=== PATIENT | male | born 1950 | race Caucasian/White ===

== ENCOUNTER 2020-03-16 11:10 | Emergency (ER) | payer MEDICARE, OTHER ==
[2020-03-16 11:47] VITALS: BP 118/61; PULSE 92
[2020-03-16 12:05] LABS: ANION GAP 16.6 mEq/L (7-13); CHLORIDE,CL 101 mmol/L (98-107); SODIUM,NA 141 mmol/L (136-145)
--- NOTE | 2020-03-16 13:48 | EDM.PDOC ---
<Kareem Roy Estephania - Last Filed: 03/16/20 14:19> ED HPI GENERAL MEDICAL PROBLEM - General Chief Complaint: General Stated Complaint: [facility] TOLD PT TO COME IN Time Seen by Provider: 03/16/20 12:00 Source of Information: Reports: Patient History Limitations: Reports: No Limitations - History of Present Illness INITIAL COMMENTS - FREE TEXT/NARRATIVE: 69 y/o M c/o increasing fatigue since his open heart surgery nov 08 of last year. Last week pt became severely weak with increasing sob with ambulation. Pt states he cannot walk 10 steps without becoming severely sob. Pt also reports increasing swelling in lower extremities over the last few weeks. Denies diaz, vision prob, cp, abd pn, diff voiding, incontinence. Onset: Gradual Duration: Day(s): Location: Reports: Generalized Worsens with: Reports: Movement Associated Symptoms: Reports: No Other Symptoms Generalized Pain Score (Numeric/FACES): 2 - Related Data Allergies Allergy/AdvReac Type Severity Reaction Status Date / Time bacitracin Allergy Hives Verified 03/16/20 11:37 Home Meds: Home Meds Aspirin 1 tab PO DAILY 10/08/14 [History] Clindamycin HCl 1 tab PO DAILY 10/08/14 [History] Nebivolol [Bystolic] 20 mg PO DAILY 10/08/14 [History] Rosuvastatin [Crestor] 10 mg PO DAILY 10/08/14 [History] Past Medical History Cardiovascular History: Reports: Hypertension Respiratory History: Reports: COPD Endocrine/Metabolic History: Reports: Diabetes, Type II, Obesity/BMI 30+ - Infectious Disease History Infectious Disease History: Reports: None - Past Surgical History Head Surgeries/Procedures: Reports: None Cardiovascular Surgical History: Reports: Coronary Artery Bypass Social & Family History - Family History Family Medical History: Unobtainable - Tobacco Use Tobacco Use Status *Q: Former Tobacco User Used Tobacco, but Quit: Yes Month/Year Tobacco Last Used: 2019 - Caffeine Use Caffeine Use: Reports: Coffee - Recreational Drug Use Recreational Drug Use: No ED ROS GENERAL - Review of Systems Review Of Systems: Comprehensive ROS is negative, except as noted in HPI. ED EXAM, GENERAL - Physical Exam Exam: See Below Exam Limited By: No Limitations General Appearance: Alert Eye Exam: Bilateral Eye: PERRL Ears: Normal External Exam, Normal Canal, Hearing Grossly Normal, Normal TMs Nose: Normal Inspection, Normal Mucosa, No Blood Throat/Mouth: Normal Inspection, Normal Lips, Normal Teeth, Normal Gums, Normal Oropharynx, Normal Voice, No Airway Compromise Head: Atraumatic, Normocephalic Neck: Normal Inspection, Supple, Non-Tender, Full Range of Motion Respiratory/Chest: No Respiratory Distress, Lungs Clear, Normal Breath Sounds, Chest Non-Tender Cardiovascular: Normal Peripheral Pulses, Regular Rate, Rhythm, No JVD GI/Abdominal: Normal Bowel Sounds, Soft, Non-Tender (Male) Exam: Deferred Rectal (Males) Exam: Normal Exam, Normal Rectal Tone, Heme - Stool Back Exam: Normal Inspection, Full Range of Motion Extremities: Other (severe weeping pedal edema) Neurological: Alert, Oriented, CN II-XII Intact, Normal Cognition Psychiatric: Normal Affect, Normal Mood Skin Exam: Warm, Dry, Intact, Normal Color, No Rash Course - Radiology Interpretation Free Text/Narrative:: Left sided pleural effusion with atelectasis/infiltrate improved. R sided pleural effusion with atelectasis/infiltrate increased. Multiple chronic compression fractures. Departure - Departure Time of Disposition: 14:21 Disposition: DC[facility] Condition: Fair Clinical Impression: CHF, Congestive heart failure Anemia Qualifiers: Anemia type: unspecified type Qualified Code(s): D64.9 - Anemia, unspecified Kidney failure, acute Qualifiers: Acute renal failure type: unspecified Qualified Code(s): N17.9 - Acute kidney failure, unspecified CHF (congestive heart failure) Qualifiers: Heart failure type: unspecified Heart failure chronicity: unspecified Qualified Code(s): I50.9 - Heart failure, unspecified - Discharge Information *PRESCRIPTION DRUG MONITORING PROGRAM REVIEWED*: Not Applicable *COPY OF PRESCRIPTION DRUG MONITORING REPORT IN PATIENT ANALI: Not Applicable Forms: ED Department Discharge Care Plan Goals: Discussed pt condition with Dr. Aguero of [facility]. Dr. Aguero understood report and accepted patient for a transfer to the PCU at [facility]. Pt was offered transfer by ambualnce but refused and states he will go by POV. Pt understands the risks of traveling POV and not with EMS and understands he could go into cardiac or respiratory arrest and could potentially . Sepsis Event Note (ED) - Evaluation Sepsis Screening Result: No Definite Risk <Abhishek Whittaker - Last Filed: 03/16/20 14:31> ED EXAM, GENERAL - Physical Exam Extremities: Other Course - Vital Signs Last Recorded V/S: Last Vital Signs Temp 36.0 C L 03/16/20 11:20 Pulse 92 03/16/20 11:20 Resp 13 03/16/20 11:20 BP 118/61 03/16/20 11:20 Pulse Ox 96 03/16/20 11:20 - Orders/Labs/Meds Orders: Active Orders 24 hr Category Date Time Status EKG Documentation Completion [RC] STAT Care 03/16/20 11:20 Active CULTURE BLOOD [BC] Stat Lab 03/16/20 11:35 Received RED BLOOD CELLS LP [BBK] Stat Lab 03/16/20 11:35 Results TYPE AND SCREEN [BBK] Stat Lab 03/16/20 11:35 Results WEAK D TEST [BBK] Stat Lab 03/16/20 11:35 Results Transfuse Red Blood Cells [COMM] Urgent Oth 03/16/20 11:20 Ordered Labs: Laboratory Tests 03/16/20 03/16/20 03/16/20 Range/Units 11:35 11:35 11:35 WBC 9.6 (5.0-10.0) 10^3/uL RBC 3.46 L (4.6-6.2) 10^6/uL Hgb 7.6 L D (14.0-18.0) g/dL Hct 27.6 L (40.0-54.0) % MCV 79.8 L D (80-100) fL MCH 22.0 L (27.0-34.0) pg MCHC 27.5 L (33.0-35.0) g/dL Plt Count 198 (150-450) 10^3/uL Neut % (Auto) 80.4 H (42.2-75.2) % Lymph % (Auto) 11.7 L (20.5-50.1) % Amador % (Auto) 6.6 (2-8) % Eos % (Auto) 0.8 L (1.0-3.0) % Baso % (Auto) 0.5 (0.0-1.0) % Sodium 141 (136-145) mmol/L Potassium 4.6 (3.5-5.1) mmol/L Chloride 101 (98-107) mmol/L Carbon Dioxide 28 (21-32) mmol/L Anion Gap 16.6 H (7-13) mEq/L BUN 41 H (7-18) mg/dL Creatinine 1.81 H (0.70-1.30) mg/dL Est Cr Clr Drug Dosing 32.25 mL/min Estimated GFR (MDRD) 37 BUN/Creatinine Ratio 22.7 (No establ ref range) Glucose 164 H (74-99) mg/dL Lactic Acid (0.4-2.0) mmol/L Calcium 9.2 (8.5-10.1) mg/dL Total Bilirubin 0.8 (0.2-1.0) mg/dL AST 16 (15-37) U/L ALT 22 (16-63) U/L Alkaline Phosphatase 133 H (46-116) U/L Troponin I < 0.017 (0.000-0.056) ng/mL B-Natriuretic Peptide 787 H (0-100) pg/ml Total Protein 7.9 (6.4-8.2) g/dL Albumin 3.5 (3.4-5.0) g/dL Globulin 4.4 Albumin/Globulin Ratio 0.8 SARS CoV-2 RNA Rapid EARLENE (NEGATIVE) Blood Type O NEGATIVE Gel Antibody Screen Negative Crossmatch See Detail 03/16/20 03/16/20 Range/Units 11:35 12:10 WBC (5.0-10.0) 10^3/uL RBC (4.6-6.2) 10^6/uL Hgb (14.0-18.0) g/dL Hct (40.0-54.0) % MCV (80-100) fL MCH (27.0-34.0) pg MCHC (33.0-35.0) g/dL Plt Count (150-450) 10^3/uL Neut % (Auto) (42.2-75.2) % Lymph % (Auto) (20.5-50.1) % Amador % (Auto) (2-8) % Eos % (Auto) (1.0-3.0) % Baso % (Auto) (0.0-1.0) % Sodium (136-145) mmol/L Potassium (3.5-5.1) mmol/L Chloride (98-107) mmol/L Carbon Dioxide (21-32) mmol/L Anion Gap (7-13) mEq/L BUN (7-18) mg/dL Creatinine (0.70-1.30) mg/dL Est Cr Clr Drug Dosing mL/min Estimated GFR (MDRD) BUN/Creatinine Ratio (No establ ref range) Glucose (74-99) mg/dL Lactic Acid 4.2 H* (0.4-2.0) mmol/L Calcium (8.5-10.1) mg/dL Total Bilirubin (0.2-1.0) mg/dL AST (15-37) U/L ALT (16-63) U/L Alkaline Phosphatase (46-116) U/L Troponin I (0.000-0.056) ng/mL B-Natriuretic Peptide (0-100) pg/ml Total Protein (6.4-8.2) g/dL Albumin (3.4-5.0) g/dL Globulin Albumin/Globulin Ratio SARS CoV-2 RNA Rapid EARLENE Negative (NEGATIVE) Blood Type Gel Antibody Screen Crossmatch - Re-Assessments/Exams Free Text/Narrative Re-Assessment/Exam: 03/16/20 14:30 I have examined the patient. I have discussed findings and treatment plan with the PA student. I agree with the assessment and plan in the following students note Sepsis Event Note (ED) - Focused Exam Vital Signs: Vital Signs Temp Pulse Resp BP Pulse Ox 03/16/20 11:20 36.0 C L 92 13 118/61 96 - My Orders Last 24 Hours: My Active Orders 03/16/20 11:20 EKG Documentation Completion [RC] STAT Transfuse Red Blood Cells [COMM] Urgent 03/16/20 11:35 CULTURE BLOOD [BC] Stat RED BLOOD CELLS LP [BBK] Stat TYPE AND SCREEN [BBK] Stat WEAK D TEST [BBK] Stat - Assessment/Plan Last 24 Hours: My Active Orders 03/16/20 11:20 EKG Documentation Completion [RC] STAT Transfuse Red Blood Cells [COMM] Urgent 03/16/20 11:35 CULTURE BLOOD [BC] Stat RED BLOOD CELLS LP [BBK] Stat TYPE AND SCREEN [BBK] Stat WEAK D TEST [BBK] Stat
== END 2020-03-16 14:40 ==
LOC: DL.ED 11:10
DX: I11.0 Hypertensive heart disease with heart failure (principal); I50.9 Heart failure, unspecified; N17.9 Acute kidney failure, unspecified; J44.9 Chronic obstructive pulmonary disease, unspecified; E11.9 Type 2 diabetes mellitus without complications; D64.9 Anemia, unspecified; E66.9 Obesity, unspecified; Z87.891 Personal history of nicotine dependence; Z79.82 Long term (current) use of aspirin; Z68.42 Body mass index [BMI] 45.0-49.9, adult; Z88.1 Allergy status to other antibiotic agents; Z20.822 Contact with and (suspected) exposure to COVID-19
CPT/HCPCS: 36415; 80053; 82272; 83605; 83880; 84484; 85025; 86850; 86900; 86901; 86920; 86922; 87040; 93005; 99284; 99285; U0002

== ENCOUNTER 2021-06-09 16:39 | Inpatient (IN) | payer MEDICARE, BC ==
[2021-06-09 18:15] LABS: ANION GAP 24.7 mEq/L (7-13); CHLORIDE,CL 98 mmol/L (98-107); SODIUM,NA 135 mmol/L (136-145)
[2021-06-09] MEDS ORDERED: Sodium Chloride 0.9% 1,000 ML IV ONE (21:55)
[2021-06-09] MEDS ORDERED: Magnesium Hydroxide 400 MG/5 ML Susp 30 ML Cup PO PRN (22:27)
[2021-06-09] MEDS ORDERED: Polyethylene Glycol 3350 Powder 17 GM Packet PO PRN (22:27)
[2021-06-09] MEDS ORDERED: Docusate Sodium 100 MG Cap PO PRN (22:27)
[2021-06-09] MEDS ORDERED: HYDROmorphone 0.5 MG/0.5 ML Syringe IVPUSH PRN (22:27)
[2021-06-09] MEDS ORDERED: Promethazine 25 MG/ML SDV IM PRN (22:27)
[2021-06-09] MEDS ORDERED: Bisacodyl 5 MG Tab PO PRN (22:27)
[2021-06-09] MEDS ORDERED: Albuterol/Ipratropium 3.0-0.5 MG/3 ML Neb Soln NEB PRN (22:27)
[2021-06-09] MEDS ORDERED: Acetaminophen 325 MG Tab PO PRN (22:27)
[2021-06-09] MEDS ORDERED: Ondansetron 4 MG/2 ML SDV IVPUSH PRN (22:27)
[2021-06-09] MEDS ORDERED: Acetaminophen/oxyCODONE 325-5 MG Tab PO PRN (22:27)
[2021-06-09] MEDS ORDERED: Sodium Chloride 0.9% 500 ML IV SCH (22:45)
[2021-06-09] MEDS ORDERED: 50% Dextrose in Water 50 ML Syringe IVPUSH PRN (23:04)
[2021-06-09] MEDS ORDERED: Glucagon,Human Recombinant 1 MG Vial IM PRN (23:04)
[2021-06-10] MEDS: Sodium Chloride 0.9% 1,000 ML IV SCH ×2 (00:52→17:17)
[2021-06-10 05:28] LABS: ANION GAP 15.8 mEq/L (7-13)
[2021-06-10] MEDS ORDERED: Magnesium Sulfate/Water 2 GM in Premix Bag 1 BAG IV ONE (07:10)
[2021-06-10] MEDS: Aspirin 81 MG Tab.EC PO SCH (08:27)
[2021-06-10] MEDS: Insulin Lispro 100 Units/ML 3 ML Vial SUBCUT SCH ×3 (08:28→17:45)
[2021-06-10] MEDS ORDERED: Metoprolol Tartrate 25 MG Tab PO SCH (09:00)
[2021-06-10] MEDS ORDERED: Acetaminophen 500 MG Tab PO PRN (20:13)
[2021-06-10] MEDS ORDERED: Nystatin Crm 15 GM Tube TOP PRN (20:13)
[2021-06-10] MEDS ORDERED: Nitroglycerin 0.4 MG Tab.SL SL PRN (20:13)
[2021-06-10] MEDS ORDERED: Nicotine 14 MG/24 Hr Patch TOP PRN (20:13)
[2021-06-11 07:08] LABS: ANION GAP 16.1 mEq/L (7-13)
[2021-06-11] MEDS: Sodium Chloride 0.9% 1,000 ML IV SCH ×2 (08:15→23:14)
[2021-06-11] MEDS ORDERED: Aspirin 81 MG Tab.Chew PO SCH (09:00)
[2021-06-11] MEDS: Aspirin 81 MG Tab.EC PO SCH (10:11)
[2021-06-11] MEDS: Metoprolol Succinate 50 MG Tab.ER PO SCH (10:11)
[2021-06-11] MEDS: Insulin Lispro 100 Units/ML 3 ML Vial SUBCUT SCH ×3 (10:13→17:31)
[2021-06-11] MEDS ORDERED: Sucralfate Suspension 1 GM/10 ML Cup PO SCH (17:00)
[2021-06-12] MEDS: Metoprolol Succinate 50 MG Tab.ER PO SCH (08:29)
[2021-06-12] MEDS: Aspirin 81 MG Tab.EC PO SCH (08:30)
[2021-06-12] MEDS: Insulin Lispro 100 Units/ML 3 ML Vial SUBCUT SCH ×3 (08:34→17:16)
[2021-06-12] MEDS: Sodium Chloride 0.9% 1,000 ML IV SCH (12:28)
[2021-06-12] MEDS: Emollient Combination No.71 177 ML Bottle TOP PRN (20:39)
[2021-06-13 07:11] LABS: ANION GAP 16.1 mEq/L (7-13)
[2021-06-13] MEDS: Metoprolol Succinate 50 MG Tab.ER PO SCH (09:03)
[2021-06-13] MEDS: Aspirin 81 MG Tab.EC PO SCH (09:03)
[2021-06-13] MEDS: Insulin Lispro 100 Units/ML 3 ML Vial SUBCUT SCH ×2 (09:04→12:14)
[2021-06-13] MEDS: Emollient Combination No.71 177 ML Bottle TOP PRN (12:15)
[2021-06-13 12:41] VITALS: BP 105/62; PULSE 80
[2021-06-13] MEDS ORDERED: Bisacodyl 5 MG Tab PO PRN (15:43)
[2021-06-13] MEDS ORDERED: Albuterol/Ipratropium 3.0-0.5 MG/3 ML Neb Soln NEB PRN (15:43)
[2021-06-13] MEDS ORDERED: Acetaminophen 325 MG Tab PO PRN (15:43)
[2021-06-13] MEDS ORDERED: Promethazine 25 MG Tab PO PRN (15:43)
[2021-06-13] MEDS ORDERED: Acetaminophen/HYDROcodone 325-5 MG Tab PO PRN (15:43)
[2021-06-13] MEDS ORDERED: Ondansetron 4 MG Tab.DIS PO PRN (15:43)
[2021-06-13] MEDS ORDERED: Polyethylene Glycol 3350 Powder 17 GM Packet PO PRN (15:43)
[2021-06-13] MEDS ORDERED: Non-Formulary Medication 1 Each (Potassium Chloride [Potassium Chloride] 20 MEQ Tablet.Er) PO SCH (18:00)
[2021-06-13] MEDS ORDERED: Non-Formulary Medication 1 Each (Metformin Hcl [Metformin Hcl] 1,000 MG Tablet) PO SCH (18:00)
[2021-06-13] MEDS ORDERED: Rosuvastatin 10 MG Tab PO SCH (21:00)
[2021-06-14] MEDS ORDERED: Allopurinol 300 MG Tab PO SCH (09:00)
[2021-06-14] MEDS ORDERED: Non-Formulary Medication 1 Each (Torsemide [Torsemide] 100 MG Tablet) PO SCH (09:00)
== END 2021-06-13 14:36 | disposition swing bed (61) | DRG 683 ==
LOC: DL.ED 16:39 → DL.MS 22:36 → OBSVTOIN 06-10 13:13
PROVIDERS: ADMIT Internal Medicine; ATTEND Internal Medicine
DX: R53.1 Weakness (principal); N17.9 Acute kidney failure, unspecified; M62.82 Rhabdomyolysis; E87.2 Acidosis; E87.1 Hypo-osmolality and hyponatremia; E78.5 Hyperlipidemia, unspecified; N28.9 Disorder of kidney and ureter, unspecified; E11.9 Type 2 diabetes mellitus without complications; I25.10 Atherosclerotic heart disease of native coronary artery without angina pectoris; Z20.822 Contact with and (suspected) exposure to COVID-19; F17.200 Nicotine dependence, unspecified, uncomplicated; E66.9 Obesity, unspecified; I27.20 Pulmonary hypertension, unspecified; T68.XXXA Hypothermia, initial encounter; E83.42 Hypomagnesemia; I11.0 Hypertensive heart disease with heart failure; J44.9 Chronic obstructive pulmonary disease, unspecified; I50.9 Heart failure, unspecified; E11.65 Type 2 diabetes mellitus with hyperglycemia; Z68.38 Body mass index [BMI] 38.0-38.9, adult; M10.9 Gout, unspecified; E80.6 Other disorders of bilirubin metabolism; Z96.653 Presence of artificial knee joint, bilateral; Z79.82 Long term (current) use of aspirin; Z79.899 Other long term (current) drug therapy; Z88.2 Allergy status to sulfonamides; Z88.1 Allergy status to other antibiotic agents; Z79.84 Long term (current) use of oral hypoglycemic drugs; Z88.8 Allergy status to other drugs, medicaments and biological substances; Z95.5 Presence of coronary angioplasty implant and graft; Z28.82 Immunization not carried out because of caregiver refusal
CPT/HCPCS: 36415 ×2; 71045; 76770; 80053 ×2; 81003; 82306; 82550 ×2; 82947 ×3; 83605 ×2; 83735; 83880; 83930; 83935; 84100; 84300; 84439; 84443; 84484; 85025 ×2; 85651; 86140 ×2; 87040; 93005; 99285; A9270 ×2; J1815; J3475; J7030 ×2; J7040; U0002; 96365; 96366; 97110-GP; 97116-GP; 97161-GP; 97165-GO; 97530-GO; G0378

== ENCOUNTER 2021-06-13 10:29 | Inpatient (IN) | payer MEDICARE, BC ==
[2021-06-13] MEDS ORDERED: Acetaminophen/HYDROcodone 325-5 MG Tab PO PRN (17:13)
[2021-06-13] MEDS ORDERED: Albuterol/Ipratropium 3.0-0.5 MG/3 ML Neb Soln NEB PRN (17:24)
[2021-06-13] MEDS ORDERED: Docusate Sodium 100 MG Cap PO PRN (17:24)
[2021-06-13] MEDS ORDERED: Bisacodyl 5 MG Tab PO PRN (17:24)
[2021-06-13] MEDS ORDERED: Polyethylene Glycol 3350 Powder 17 GM Packet PO PRN (17:24)
[2021-06-13] MEDS ORDERED: Ondansetron 4 MG Tab.DIS PO PRN (17:24)
[2021-06-13] MEDS ORDERED: Promethazine 25 MG Tab PO PRN (17:24)
[2021-06-13] MEDS ORDERED: Acetaminophen 500 MG Tab PO PRN (18:02)
[2021-06-13] MEDS ORDERED: Nystatin Crm 15 GM Tube TOP PRN (18:05)
[2021-06-13] MEDS ORDERED: Nitroglycerin 0.4 MG Tab.SL SL PRN (18:06)
[2021-06-13] MEDS ORDERED: Nicotine 14 MG/24 Hr Patch TRDERM PRN (18:06)
[2021-06-13] MEDS: Potassium Chloride 10 MEQ Tab.ER PO SCH (19:21)
[2021-06-13] MEDS: Rosuvastatin 10 MG Tab PO SCH (20:07)
[2021-06-14 06:16] LABS: ANION GAP 13.6 mEq/L (7-13)
[2021-06-14] MEDS: Aspirin 81 MG Tab.Chew PO SCH (10:33)
[2021-06-14] MEDS: Potassium Chloride 10 MEQ Tab.ER PO SCH ×2 (10:33→17:55)
[2021-06-14] MEDS: Metoprolol Succinate 50 MG Tab.ER PO SCH (10:34)
[2021-06-14] MEDS: Rosuvastatin 10 MG Tab PO SCH (21:56)
[2021-06-15] MEDS: Metoprolol Succinate 50 MG Tab.ER PO SCH (08:27)
[2021-06-15] MEDS: Aspirin 81 MG Tab.Chew PO SCH (08:27)
[2021-06-15] MEDS: Potassium Chloride 10 MEQ Tab.ER PO SCH ×2 (08:27→17:59)
[2021-06-15] MEDS: Acetaminophen 500 MG Tab PO PRN (11:20)
[2021-06-15] MEDS: Rosuvastatin 10 MG Tab PO SCH (20:15)
[2021-06-15] MEDS: Acetaminophen 325 MG Tab PO PRN (20:15)
[2021-06-16] MEDS: Aspirin 81 MG Tab.Chew PO SCH (08:19)
[2021-06-16] MEDS: Potassium Chloride 10 MEQ Tab.ER PO SCH ×2 (08:19→17:14)
[2021-06-16] MEDS: Metoprolol Succinate 50 MG Tab.ER PO SCH (08:19)
[2021-06-16] MEDS: Rosuvastatin 10 MG Tab PO SCH (22:19)
[2021-06-17] MEDS: Aspirin 81 MG Tab.Chew PO SCH (08:30)
[2021-06-17] MEDS: Potassium Chloride 10 MEQ Tab.ER PO SCH ×2 (08:31→17:57)
[2021-06-17] MEDS: Metoprolol Succinate 50 MG Tab.ER PO SCH (09:08)
[2021-06-17] MEDS: Rosuvastatin 10 MG Tab PO SCH (20:53)
[2021-06-18] MEDS: Aspirin 81 MG Tab.Chew PO SCH (09:38)
[2021-06-18] MEDS: Metoprolol Succinate 50 MG Tab.ER PO SCH (09:38)
[2021-06-18] MEDS: Potassium Chloride 10 MEQ Tab.ER PO SCH ×2 (09:40→18:25)
[2021-06-18] MEDS ORDERED: Torsemide 20 MG Tab PO ONE (16:00)
[2021-06-18] MEDS: Rosuvastatin 10 MG Tab PO SCH (21:18)
[2021-06-19] MEDS: Acetaminophen 325 MG Tab PO PRN (01:36)
[2021-06-19] MEDS ORDERED: Torsemide 20 MG Tab PO SCH (09:00)
[2021-06-19] MEDS: Aspirin 81 MG Tab.Chew PO SCH (09:08)
[2021-06-19] MEDS: Potassium Chloride 10 MEQ Tab.ER PO SCH ×2 (09:08→18:56)
[2021-06-19] MEDS: Allopurinol 300 MG Tab PO SCH (09:08)
[2021-06-19] MEDS: Metoprolol Succinate 50 MG Tab.ER PO SCH (10:21)
[2021-06-19 19:03] LABS: ANION GAP 12.2 mEq/L (7-13)
[2021-06-19] MEDS: Rosuvastatin 10 MG Tab PO SCH (20:16)
[2021-06-19] MEDS: Acetaminophen 500 MG Tab PO PRN (22:52)
[2021-06-20] MEDS: Metoprolol Succinate 50 MG Tab.ER PO SCH (09:24)
[2021-06-20] MEDS: Allopurinol 300 MG Tab PO SCH (09:24)
[2021-06-20] MEDS: Aspirin 81 MG Tab.Chew PO SCH (09:25)
[2021-06-20] MEDS: Potassium Chloride 10 MEQ Tab.ER PO SCH ×2 (09:52→18:13)
[2021-06-20] MEDS: Rosuvastatin 10 MG Tab PO SCH (20:12)
[2021-06-20] MEDS: Acetaminophen 500 MG Tab PO PRN (22:40)
[2021-06-21 06:56] LABS: ANION GAP 15.5 mEq/L (7-13)
[2021-06-21 08:29] VITALS: PULSE 84
[2021-06-21 08:31] VITALS: BP 111/74
[2021-06-21] MEDS ORDERED: Torsemide 20 MG Tab PO SCH (09:00)
[2021-06-21] MEDS: Aspirin 81 MG Tab.Chew PO SCH (09:04)
[2021-06-21] MEDS: Allopurinol 300 MG Tab PO SCH (09:05)
[2021-06-21] MEDS: Metoprolol Succinate 50 MG Tab.ER PO SCH (09:06)
[2021-06-21] MEDS ORDERED: Potassium Chloride 10 MEQ Tab.ER PO SCH (18:30)
== END 2021-06-21 10:00 | disposition other institution (70) | DRG 948 ==
LOC: DL.MS 14:36
PROVIDERS: ADMIT Internal Medicine; ATTEND Internal Medicine
DX: R53.81 Other malaise (principal); Z68.42 Body mass index [BMI] 45.0-49.9, adult; E87.2 Acidosis; M62.82 Rhabdomyolysis; N17.9 Acute kidney failure, unspecified; E87.1 Hypo-osmolality and hyponatremia; Z20.822 Contact with and (suspected) exposure to COVID-19; I27.20 Pulmonary hypertension, unspecified; M10.9 Gout, unspecified; T68.XXXA Hypothermia, initial encounter; E66.01 Morbid (severe) obesity due to excess calories; I50.9 Heart failure, unspecified; I11.0 Hypertensive heart disease with heart failure; Z96.642 Presence of left artificial hip joint; F17.200 Nicotine dependence, unspecified, uncomplicated; E11.65 Type 2 diabetes mellitus with hyperglycemia; Z96.653 Presence of artificial knee joint, bilateral; Z98.61 Coronary angioplasty status; Z88.1 Allergy status to other antibiotic agents; Z88.2 Allergy status to sulfonamides; Z79.82 Long term (current) use of aspirin; Z79.899 Other long term (current) drug therapy
CPT/HCPCS: 36415; 80048; 82947; 83735; 85025; 97110-GO; 97110-GP; 97116-GP; 97161-GP; 97165-GO; 97530-GO; 97535-GO; A9270-GY; U0002

== ENCOUNTER 2021-06-28 17:12 | Inpatient (IN) | payer MEDICARE, BC ==
[2021-06-28 18:16] LABS: PTT,PARTIAL THROMBOPLSTIN TIME 28.8 SEC (22.0-34.0)
[2021-06-28 18:23] LABS: ANION GAP 15.7 mEq/L (7-13); CHLORIDE,CL 100 mmol/L (98-107); SODIUM,NA 136 mmol/L (136-145)
[2021-06-28 18:38] LABS: CORONAVIRUS COVID-19 NAA NEGATIVE (NEGATIVE); RESPIRATORY SYNCYTIAL VIR NAA NEGATIVE (NEGATIVE)
[2021-06-28] MEDS ORDERED: Vancomycin 2 GM in Sodium Chloride 0.9% 500 ML IV ONE (19:05)
[2021-06-28] MEDS ORDERED: Sodium Chloride 0.9% 500 ML IV ONE (19:07)
[2021-06-28] MEDS ORDERED: Nicotine 14 MG/24 Hr Patch TOP PRN (21:06)
[2021-06-28] MEDS ORDERED: Acetaminophen 500 MG Tab PO PRN (21:06)
[2021-06-28] MEDS ORDERED: Nitroglycerin 0.4 MG Tab.SL SL PRN (21:06)
[2021-06-28] MEDS ORDERED: HYDROmorphone 0.5 MG/0.5 ML Syringe IVPUSH PRN (21:08)
[2021-06-28] MEDS ORDERED: Acetaminophen/HYDROcodone 325-5 MG Tab PO PRN (21:08)
[2021-06-28] MEDS ORDERED: Acetaminophen 325 MG Tab PO PRN (21:08)
[2021-06-28] MEDS ORDERED: Ondansetron 4 MG/2 ML SDV IVPUSH PRN (21:18)
[2021-06-28] MEDS ORDERED: Magnesium Hydroxide 400 MG/5 ML Susp 30 ML Cup PO PRN (21:18)
[2021-06-28] MEDS ORDERED: Polyethylene Glycol 3350 Powder 17 GM Packet PO PRN (21:18)
[2021-06-28] MEDS ORDERED: Bisacodyl 5 MG Tab PO PRN (21:18)
[2021-06-28] MEDS ORDERED: Docusate Sodium 100 MG Cap PO PRN (21:18)
[2021-06-28] MEDS ORDERED: Albuterol/Ipratropium 3.0-0.5 MG/3 ML Neb Soln NEB PRN (21:18)
[2021-06-28] MEDS: Heparin Sodium 5,000 Units/ML Vial SUBCUT SCH (21:41)
[2021-06-28] MEDS: Sodium Chloride 0.9% 1,000 ML IV SCH (21:43)
[2021-06-28] MEDS ORDERED: 50% Dextrose in Water 50 ML Syringe IVPUSH PRN (21:53)
[2021-06-28] MEDS ORDERED: Glucagon,Human Recombinant 1 MG Vial IM PRN (21:53)
[2021-06-28] MEDS ORDERED: Nystatin Topical Powder 30 GM Bottle TOP PRN (21:54)
[2021-06-28] MEDS ORDERED: hydrALAZINE 20 MG/ML SDV IVPUSH PRN (21:57)
[2021-06-28] MEDS ORDERED: Metoprolol Tartrate 5 MG/5 ML SDV IVPUSH PRN (21:57)
[2021-06-28] MEDS ORDERED: Midodrine 2.5 MG Tab PO PRN (22:11)
[2021-06-28] MEDS ORDERED: Midodrine 2.5 MG Tab PO ONE (22:11)
[2021-06-28] MEDS ORDERED: Meropenem 1 GM SDV IV ONE (22:15)
[2021-06-28] MEDS ORDERED: Sodium Chloride 0.9% 500 ML IV SCH (22:15)
[2021-06-29] MEDS: Meropenem 1 GM in Sodium Chloride 0.9% 100 ML IV SCH ×2 (00:49→06:13)
[2021-06-29] MEDS: Heparin Sodium 5,000 Units/ML Vial SUBCUT SCH ×3 (06:13→21:17)
[2021-06-29 07:30] LABS: ANION GAP 16.6 mEq/L (7-13)
[2021-06-29] MEDS ORDERED: Aspirin 81 MG Tab.Chew PO SCH (09:00)
[2021-06-29] MEDS ORDERED: Metoprolol Succinate 50 MG Tab.ER PO SCH (09:00)
[2021-06-29] MEDS ORDERED: Midodrine 2.5 MG Tab PO PRN (09:08)
[2021-06-29] MEDS: Insulin Lispro 100 Units/ML 3 ML Vial SUBCUT SCH ×3 (09:12→17:25)
[2021-06-29] MEDS ORDERED: Piperacillin/Tazobactam 3.375 GM in Sodium Chloride 0.9% 100 ML IV SCH (10:00)
[2021-06-29] MEDS ORDERED: Furosemide 20 MG/2 ML VIAL IVPUSH ONE (11:06)
[2021-06-29] MEDS: Piperacillin/Tazobactam 2.25 GM in Sodium Chloride 0.9% 50 ML IV SCH ×3 (11:40→22:27)
[2021-06-29] MEDS ORDERED: Norepinephrine 4 MG in Dextrose 5% in Water 246 ML IV SCH ×2 (11:45)
[2021-06-29] MEDS ORDERED: Clindamycin Phosphate 600 MG in Sodium Chloride 0.9% 100 ML IV SCH (12:00)
[2021-06-29] MEDS ORDERED: Saccharomyces Boulardii (Probiotic) 250 MG Cap PO SCH ×2 (12:00→21:00)
[2021-06-29] MEDS: Sodium Chloride 0.9% 1,000 ML IV SCH ×3 (12:12→22:23)
[2021-06-29] MEDS: Clindamycin in 0.9 % Sod Chlor 600 MG in Premix Bag 1 BAG IV SCH ×4 (12:54→17:32)
[2021-06-29] MEDS: Hydrocortisone Sodium Succinate 100 MG/2 ML SDV IVPUSH SCH ×2 (14:34→21:14)
[2021-06-29 18:57] LABS: ANION GAP 16.5 mEq/L (7-13)
[2021-06-29] MEDS ORDERED: Lactated Ringers 1,000 ML IV ONE (21:45)
[2021-06-29 23:47] VITALS: BP 100/60; PULSE 83
== END 2021-06-29 23:11 | DRG 871 ==
LOC: DL.ED 17:12 → DL.MS 19:30
PROVIDERS: ADMIT Internal Medicine; ATTEND Internal Medicine
PROC: 3E033XZ Introduction of Vasopressor into Peripheral Vein, Percutaneous Approach (ICD-10-PCS; principal; 2021-06-28)
PROC: 3E03329 Introduction of Other Anti-infective into Peripheral Vein, Percutaneous Approach (ICD-10-PCS; 2021-06-28)
PROC: 02HV33Z Insertion of Infusion Device into Superior Vena Cava, Percutaneous Approach (ICD-10-PCS; 2021-06-29)
DX: I50.9 Heart failure, unspecified (principal); A41.9 Sepsis, unspecified organism; I50.33 Acute on chronic diastolic (congestive) heart failure; R65.21 Severe sepsis with septic shock; L03.115 Cellulitis of right lower limb; L03.116 Cellulitis of left lower limb; N17.9 Acute kidney failure, unspecified; I13.0 Hypertensive heart and chronic kidney disease with heart failure and stage 1 through stage 4 chronic kidney disease, or unspecified chronic kidney disease; Z68.41 Body mass index [BMI] 40.0-44.9, adult; E78.00 Pure hypercholesterolemia, unspecified; J44.9 Chronic obstructive pulmonary disease, unspecified; N18.9 Chronic kidney disease, unspecified; E11.65 Type 2 diabetes mellitus with hyperglycemia; E11.22 Type 2 diabetes mellitus with diabetic chronic kidney disease; E80.6 Other disorders of bilirubin metabolism; B37.2 Candidiasis of skin and nail; R00.0 Tachycardia, unspecified; E66.01 Morbid (severe) obesity due to excess calories; E78.5 Hyperlipidemia, unspecified; I25.10 Atherosclerotic heart disease of native coronary artery without angina pectoris; I27.20 Pulmonary hypertension, unspecified; N18.30 Chronic kidney disease, stage 3 unspecified; M10.9 Gout, unspecified; G47.33 Obstructive sleep apnea (adult) (pediatric); Z66 Do not resuscitate; H54.7 Unspecified visual loss; I07.1 Rheumatic tricuspid insufficiency; Z96.653 Presence of artificial knee joint, bilateral; Z96.642 Presence of left artificial hip joint; I87.2 Venous insufficiency (chronic) (peripheral); Z95.1 Presence of aortocoronary bypass graft; Z79.84 Long term (current) use of oral hypoglycemic drugs; Z79.82 Long term (current) use of aspirin; Z79.899 Other long term (current) drug therapy; Z88.2 Allergy status to sulfonamides; Z88.1 Allergy status to other antibiotic agents; Z95.5 Presence of coronary angioplasty implant and graft; F17.210 Nicotine dependence, cigarettes, uncomplicated; Z20.822 Contact with and (suspected) exposure to COVID-19; R74.8 Abnormal levels of other serum enzymes
CPT/HCPCS: 0241U; 36415; 51702; 71045; 80048; 80053; 80307; 81001; 82150; 82533; 82947; 83605; 83690; 83735; 83880; 84100; 84145; 84439; 84443; 84484; 85025; 85610; 85730; 86140; 87040; 87086; 87088; 87186; 93005; 93010; 96365; 99284; 99285-25; A9270-GY; J0282; J1170; J1644; J1720; J1815-GY; J1940; J2185; J2543; J3370; J3475; J3490; J7030; J7040; J7060; J7120